=== PATIENT | male | born 1985 | race Caucasian/White ===

== ENCOUNTER 2024-10-21 12:13 | Emergency (ER) | payer OTHER ==
[~2024-10-21] VITALS: Ht 172.7 cm; Wt 108.0 kg
[2024-10-21 13:41] LABS: PLATELET COUNT (AUTO) 350 K/uL (152-348); RED BLOOD CELL COUNT(AUTO) 5.26 MIL/uL (4.06-5.63); RED CELL DISTRIBUTION WIDTH 13.4 % (12.1-16.2); WHITE BLOOD COUNT (AUTO) 9.5 K/uL (3.6-10.2)
[2024-10-21 13:50] LABS: CREATININE 0.8 mg/dL (0.6-1.3); SODIUM SERUM 140 mmol/L (136-145); UREA NITROGEN, BLOOD 11 mg/dL (7-18)
[2024-10-21 13:56] LABS: ASPARTATE AMINOTRANSFERASE 13 U/L (15-37); TOTAL PROTEIN, SERUM 8.2 g/dL (6.4-8.2)
[2024-10-21 14:15] VITALS: BP 128/79
[2024-10-21] MEDS ORDERED: PRED50TA PO (14:58)
[2024-10-21] MEDS ORDERED: DOXY100C5 PO (14:58)
[2024-10-21] MEDS ORDERED: ALBU8.5H8 INH (14:58)
[2024-10-21] MEDS ORDERED: LORA-259 PO (15:08)
[2024-10-21 17:46] VITALS: BP 130/84; O2SAT 99
== END 2024-10-21 15:09 | disposition home or self-care (01) ==
LOC: ER 12:13
DX: J44.89 Other specified chronic obstructive pulmonary disease (principal); R07.89 Other chest pain; Z79.52 Long term (current) use of systemic steroids; Z87.891 Personal history of nicotine dependence
CPT/HCPCS: 36415; 71045; 84484; 85025; 85730; A4606; A4663

== ENCOUNTER 2025-03-07 15:31 | Emergency (ER) | payer OTHER ==
[~2025-03-07] VITALS: Ht 180.3 cm; Wt 106.6 kg
[~2025-03-07 15:31] MED LIST: ALBU8.5H8 INH; DOXY100C5 PO; LORA-259 PO; PRED50TA PO
[2025-03-07 15:55] VITALS: BP 141/89
[2025-03-07 16:36] LABS: PLATELET COUNT (AUTO) 324 K/uL (152-348); RED BLOOD CELL COUNT(AUTO) 5.30 MIL/uL (4.06-5.63); RED CELL DISTRIBUTION WIDTH 13.1 % (12.1-16.2); WHITE BLOOD COUNT (AUTO) 10.0 K/uL (3.6-10.2)
[2025-03-07] MEDS ORDERED: HYDROCODONE/APAP 10-325 MG TABLET ONE (16:42)
[2025-03-07 16:46] LABS: CREATININE 0.9 mg/dL (0.6-1.3); SODIUM SERUM 143.0 mmol/L (136-145); UREA NITROGEN, BLOOD 7.0 mg/dL (7-18)
[2025-03-07] MEDS: HYDROCODONE/APAP 10-325 MG TABLET PO ONE (16:47)
[2025-03-07 16:48] LABS: *BILIRUBIN,URIN NEGATIVE (NEGATIVE); *CLARITY,URINE CLEAR (CLEAR); *COLOR,URINE YELLOW (YELLOW); *KETONES,URINE NEGATIVE (NEGATIVE); *PROTEIN,URINE NEGATIVE (NEGATIVE); *UROBILINOGEN,URINE 0.2 E.U./dl (NORMAL); LEUKOCYTE ESTERASE ,URINE NEGATIVE (NEGATIVE); NITRITE, URINE NEGATIVE (NEGATIVE); UGLUCOSE NEGATIVE (NEGATIVE)
[2025-03-07 16:49] LABS: *BLOOD, URINE TRACE (NEGATIVE)
[2025-03-07 17:02] LABS: ASPARTATE AMINOTRANSFERASE 16.0 U/L (15-37); TOTAL PROTEIN, SERUM 8.1 g/dL (6.4-8.2)
[2025-03-07 17:11] LABS: SQUAMOUS EPITHELIAL CELL,UR FEW /HPF (NONE SEEN)
[2025-03-07] MEDS ORDERED: OXYC-128 PO (17:53)
[2025-03-07 18:06] VITALS: BP 131/81; TEMP 98; O2SAT 99
[2025-03-09 06:07] LABS: CHLAMYDIA TRACHOMATIS NAA Negative (Negative); NEISSERIA GONORRHOEAE NAA Negative (Negative)
== END 2025-03-07 18:07 | disposition home or self-care (01) ==
LOC: ER 15:31
DX: S39.011A Strain of muscle, fascia and tendon of abdomen, initial encounter (principal); K40.90 Unilateral inguinal hernia, without obstruction or gangrene, not specified as recurrent; F17.200 Nicotine dependence, unspecified, uncomplicated; Z79.52 Long term (current) use of systemic steroids; X58.XXXA Exposure to other specified factors, initial encounter; Y93.89 Activity, other specified; Y92.89 Other specified places as the place of occurrence of the external cause; Y99.9 Unspecified external cause status
CPT/HCPCS: 36415; 72170; 85025; 87491; 87591; A4606; A4663